=== PATIENT | female | born 1945 | race Caucasian/White ===

== ENCOUNTER 2017-09-21 16:51 | Emergency (ER) | payer OTHER ==
--- NOTE | 2017-09-21 17:09 | ER ---
Nurse's Notes [facility] Name: Jacinda Baird Age: 72 yrs Sex: Female : 1945 Arrival Date: 09/21/2017 Time: 16:52 Bed 13 Private MD: Richard Krause Diagnosis: Cellulitis of right lower limb Presentation: 09/21 16:55 Presenting complaint: Patient states: "a wasp stung me on and my leg is red aa5 and swollen now". Transition of care: patient was not received from another setting of care. Care prior to arrival: None. 16:55 Method Of Arrival: Ambulatory aa5 16:55 Acuity: YESSENIA 5 aa5 17:00 Anaphylaxis evaluation, no signs or symptoms of anaphylaxis were noted. Onset of rb1 symptoms was September 18, 2017. Initial Sepsis Screen: Does the patient meet any 2 criteria? No. Patient's initial sepsis screen is negative. Does the patient have a suspected source of infection? No. Patient's initial sepsis screen is negative. 17:00 Onset: The symptoms/episode began/occurred 3 day(s) ago. rb1 Historical: - Allergies: 16:56 PENICILLINS; aa5 - Home Meds: 17:00 levothyroxine oral [Active]; rb1 - PMHx: 16:56 Hypothyroidism; aa5 16:57 Hyperlipidemia; aa5 - PSHx: 16:57 None; aa5 - Immunization history:: Last tetanus immunization: unknown. - Social history:: Smoking status: Patient/guardian denies using tobacco. Screenin:00 Abuse screen: Denies threats or abuse. Nutritional screening: No deficits noted. rb1 Tuberculosis screening: No symptoms or risk factors identified. Fall Risk None identified. Assessment: 17:00 General: Appears in no apparent distress. comfortable, Behavior is calm, cooperative. rb1 Pain: Complains of pain in medial aspect of right calf Pain currently is 6 out of 10 on a pain scale. Neuro: Level of Consciousness is awake, alert, obeys commands, Oriented to person, place, time, situation. Cardiovascular: Capillary refill < 3 seconds is brisk in bilateral toes. Respiratory: Airway is patent Respiratory effort is even, unlabored, Respiratory pattern is regular, symmetrical, Breath sounds are clear bilaterally. GI: No signs and/or symptoms were reported involving the gastrointestinal system. : No signs and/or symptoms were reported regarding the genitourinary system. EENT: Derm: Bruising that is dark purple, on medial aspect of right calf. Musculoskeletal: Range of motion: intact in all extremities. Vital Signs: 16:57 BP 144 / 85; Pulse 60; Resp 18 S; Temp 97.9(O); Pulse Ox 97% on R/A; Weight 68.04 kg aa5 (R); Height 5 ft. 6 in. (167.64 cm) (R); 16:57 Body Mass Index 24.21 (68.04 kg, 167.64 cm) aa5 ED Course: 16:52 Patient arrived in ED. as 16:52 Richard Krause MD is Private Physician. as 16:56 Triage completed. aa5 16:56 Arm band placed on. aa5 16:59 Pilar Kate FNP-C [facility]. kb 16:59 Geovanny Lackey MD is Attending Physician. kb 17:00 Patient has correct armband on for positive identification. Bed in low position. Call rb1 light in reach. Side rails up X 1. Pulse ox on. NIBP on. 17:01 Jennyfer Ferris, RN is Primary Nurse. rb1 17:08 Richard Krause MD is Referral Physician. kb 17:36 No provider procedures requiring assistance completed. Patient did not have IV access rb1 during this emergency room visit. Administered Medications: 17:25 Drug: Tetanus-Diphtheria Toxoid Adult 0.5 ml {Air Quality Specialist: [employer]. Exp: rb1 12/20/2019. Lot #: [id number]. } Route: IM; Site: right deltoid; 17:30 Follow up: Response: Medication administered at discharge.; pt. has had both rb1 medications before without incident. 17:25 Drug: Clindamycin 300 mg Route: PO; rb1 17:30 Follow up: Response: Medication administered at discharge. rb1 Intake: Outcome: 17:08 Discharge ordered by . kb 17:36 Discharged to home ambulatory, with family. rb1 17:36 Condition: stable 17:36 Discharge instructions given to patient, Instructed on discharge instructions, follow up and referral plans. medication usage, Demonstrated understanding of instructions, follow-up care, medications, Prescriptions given X 1. 17:37 Patient left the ED. rb1 Signatures: Pilar Kate FNP-C FNP-CkZeny Ludwig Audri, RN RN aa5 Jennyfer Ferris, RN RN rb1
--- NOTE | 2017-09-21 17:09 | EDPHYS ---
Physician Documentation [facility] Name: Jacinda Baird Age: 72 yrs Sex: Female : 1945 Arrival Date: 09/21/2017 Time: 16:52 Bed 13 Private MD: Rihcard Krause ED Physician Geovanny Lackey HPI: 09/21 17:07 This 72 yrs old Female presents to ER via Ambulatory with complaints of Bee kb Sting - 3 Days Ago, Leg Swelling. 17:07 The patient presents with cellulitis of the medial aspect of right calf. Description: kb erythematous, swollen. Onset: The symptoms/episode began/occurred 3 day(s) ago. Possible cause(s): insect sting. Associated signs and symptoms: Pertinent positives: erythema, swelling, Pertinent negatives: discharge, drainage, foreign body sensation, fever, headache, nausea, shortness of breath, vomiting. Modifying factors: the symptoms are alleviated by nothing, the symptoms are aggravated by nothing. Severity of symptoms: At their worst the symptoms were mild, moderate, in the emergency department the symptoms are unchanged. The patient has not experienced similar symptoms in the past. The patient has not recently seen a physician. Historical: - Allergies: 16:56 PENICILLINS; aa5 - Home Meds: 17:00 levothyroxine oral [Active]; rb1 - PMHx: 16:56 Hypothyroidism; aa5 16:57 Hyperlipidemia; aa5 - PSHx: 16:57 None; aa5 - Immunization history:: Last tetanus immunization: unknown. - Social history:: Smoking status: Patient/guardian denies using tobacco. ROS: 17:06 Constitutional: Negative for fever, chills, and weight loss, Cardiovascular: Negative kb for chest pain, palpitations, and edema, Respiratory: Negative for shortness of breath, cough, wheezing, and pleuritic chest pain, Abdomen/GI: Negative for abdominal pain, nausea, vomiting, diarrhea, and constipation, MS/Extremity: Negative for injury and deformity, Neuro: Negative for headache, weakness, numbness, tingling, and seizure. 17:06 Skin: Positive for cellulitis, erythema, swelling, of the medial aspect of right calf. Exam: 17:06 Constitutional: This is a well developed, well nourished patient who is awake, alert, kb and in no acute distress. Head/Face: Normocephalic, atraumatic. Chest/axilla: Normal chest wall appearance and motion. Nontender with no deformity. No lesions are appreciated. Cardiovascular: Regular rate and rhythm with a normal S1 and S2. No gallops, murmurs, or rubs. Normal PMI, no JVD. No pulse deficits. Respiratory: Lungs have equal breath sounds bilaterally, clear to auscultation and percussion. No rales, rhonchi or wheezes noted. No increased work of breathing, no retractions or nasal flaring. Abdomen/GI: Soft, non-tender, with normal bowel sounds. No distension or tympany. No guarding or rebound. No evidence of tenderness throughout. MS/ Extremity: Pulses equal, no cyanosis. Neurovascular intact. Full, normal range of motion. Neuro: Awake and alert, GCS 15, oriented to person, place, time, and situation. Cranial nerves II-XII grossly intact. Motor strength 5/5 in all extremities. Sensory grossly intact. Cerebellar exam normal. Normal gait. 17:06 Skin: cellulitis, that is mild, that is moderate, on the medial aspect of right calf. Vital Signs: 16:57 BP 144 / 85; Pulse 60; Resp 18 S; Temp 97.9(O); Pulse Ox 97% on R/A; Weight 68.04 kg aa5 (R); Height 5 ft. 6 in. (167.64 cm) (R); 16:57 Body Mass Index 24.21 (68.04 kg, 167.64 cm) aa5 MDM: 16:59 Patient medically screened. kb 17:05 Data reviewed: vital signs, nurses notes. Data interpreted: Pulse oximetry: on room air kb is 97 %. Interpretation: normal. Counseling: I had a detailed discussion with the patient and/or guardian regarding: the historical points, exam findings, and any diagnostic results supporting the discharge/admit diagnosis, the need for outpatient follow up, a family practitioner, to return to the emergency department if symptoms worsen or persist or if there are any questions or concerns that arise at home. Administered Medications: 17:25 Drug: Tetanus-Diphtheria Toxoid Adult 0.5 ml {Production Hand: [employer]. Exp: rb1 12/20/2019. Lot #: [id number]. } Route: IM; Site: right deltoid; 17:30 Follow up: Response: Medication administered at discharge.; pt. has had both rb1 medications before without incident. 17:25 Drug: Clindamycin 300 mg Route: PO; rb1 17:30 Follow up: Response: Medication administered at discharge. rb1 Disposition: 18:13 Co-signature as Attending Physician, Geovanny Lackey MD. rn Disposition: 09/21/17 17:08 Discharged to Home. Impression: Cellulitis of right lower limb. - Condition is Stable. - Discharge Instructions: Cellulitis, [id number]. - Prescriptions for Clindamycin HCl 300 mg Oral Capsule - take 1 capsule by ORAL route every 8 hours for 7 days; 21 capsule. - Medication Reconciliation Form, Thank You Letter, Antibiotic Education, Prescription Opioid Use form. - Follow up: Emergency Department; When: As needed; Reason: Worsening of condition. Follow up: Richard Krause MD; When: 2 - 3 days; Reason: Recheck today's complaints, Continuance of care, Re-evaluation by your physician. Signatures: Pilar Kate, CONCAVER-C CONCAVER-Ckb Geovanny Lackey MD MD rn Calderon, Audri RN RN aa5 Jennyfer Ferris, RN RN rb1 Corrections: (The following items were deleted from the chart) 17:37 17:08 09/21/2017 17:08 Discharged to Home. Impression: Cellulitis of right lower limb. rb1 Condition is Stable. Forms are Medication Reconciliation Form, Thank You Letter, Antibiotic Education, Prescription Opioid Use. Follow up: Emergency Department; When: As needed; Reason: Worsening of condition. Follow up: Richard Krause; When: 2 - 3 days; Reason: Recheck today's complaints, Continuance of care, Re-evaluation by your physician. kb
[2017-09-21] MEDS ORDERED: TETANUS & DIPHTHERIA TOX,ADULT 0.5 ML VIAL ONE (17:21)
[2017-09-21] MEDS ORDERED: CLINDAMYCIN HCL 150 MG CAP ONE (17:21)
[2017-09-21 17:40] VITALS: BP 144/85; TEMP 97.9; O2SAT 97
== END 2017-09-21 17:37 | disposition home or self-care (01) ==
LOC: ER 16:51
DX: L03.115 Cellulitis of right lower limb (principal); E03.9 Hypothyroidism, unspecified; W57.XXXA Bitten or stung by nonvenomous insect and other nonvenomous arthropods, initial encounter; Y93.9 Activity, unspecified; Y92.9 Unspecified place or not applicable; Z23 Encounter for immunization; Z88.0 Allergy status to penicillin
CPT/HCPCS: 90714; 99283

== ENCOUNTER 2019-10-03 06:24 | Emergency (ER) | payer OTHER ==
[2019-10-03] MEDS ORDERED: FENTANYL CITR 100 MCG/2 ML ONE (06:50)
[2019-10-03 06:59] LABS: Absolute Lymphocytes (CBC) 1.9 K/uL (0.7-4.9); Basophils % 1.2 % (0-1.3); Hematocrit 44.7 % (36.0-45.0); Lymphocytes % 31.7 % (15.3-44.8); MPV 7.7 fL (7.6-11.3)
[2019-10-03 07:11] LABS: Protime INR 0.88
[2019-10-03 07:25] LABS: ALT/SGPT 24 U/L (12-78); AST/SGOT 19 U/L (15-37); Albumin 3.6 g/dL (3.4-5.0); Alkaline Phosphatase 71 U/L (45-117); BUN Blood Urea Nitrogen 14 mg/dL (7-18); Bicarbonate 27 mmol/L (21-32); Bilirubin Direct 0.1 mg/dL (0-0.2); Bilirubin Total 0.6 mg/dL (0.2-1.0); Glucose Level 88 mg/dL (74-106); Magnesium 2.2 mg/dL (1.8-2.4); NT PRO-BNP 476 pg/mL (<450); Potassium 3.8 mmol/L (3.5-5.1); Protein, Total 7.3 g/dL (6.4-8.2); Sodium Level 141 mmol/L (136-145); Troponin (Emerg Dept Use Only) < 0.02 ng/mL (0.0-0.045)
--- NOTE | 2019-10-03 09:05 | RAD REPORT ---
EXAM DESCRIPTION: RAD - Chest Single View - 10/03/2019 6:57 am CLINICAL HISTORY: CHEST PAIN COMPARISON: Portable December 2013 TECHNIQUE: AP portable chest image was obtained 10/03/2019 6:57 am . FINDINGS: No focal mass or consolidation. Interstitial markings are mildly prominent believed be bas tom. This is similar to the remote study. No failure or volume overload. Heart and vasculature are normal. No measurable pleural effusion and no pneumothorax. No acute bony abnormality seen. No acute aortic findings suspected. IMPRESSION: No acute cardiopulmonary process. Mild prominent interstitial pattern is baseline. A very minimal edema or infiltrate could potentially be mass. Follow-up can be obtained as warranted.
--- NOTE | 2019-10-03 10:44 | RAD REPORT ---
EXAM DESCRIPTION: CT - Thorax W/ Con - 10/03/2019 10:01 am CLINICAL HISTORY: eval for mass;Pain COMPARISON: CTANGIO CHEST FOR PE dated 01/16/2014; Chest Single View dated 10/03/2019 TECHNIQUE: Dynamically enhanced 5 mm thick images of the chest were obtained during administration o f 100 mL non-ionic IV contrast. All CT scans are performed using dose optimization technique as appropriate and may include automated exposure control or mA/KV adjustment according to patient size. FINDINGS: Biapical pleural and parenchymal scarring changes match 2014 imaging. Scattered areas of s ubpleural scarring elsewhere in the lung holloway also seen as stable. No worrisome mass or nodule. No pleural thickening or pleural effusion. No pneumothorax. No chest wall mass or abnormal axillary lymp hadenopathy. Ascending aorta is 3.8 centimeter similar to comparison. Lower the descending thoracic aorta is tortu ous. No acute aortic finding. Pulmonary arteries show no suspicious finding. No mediastinal or hilar mass lesion identifiable. Prominent left atrium matches 2014 imaging. Small hiatal hernia has not howard nged. No rib fractures or rib lesions identifiable. IMPRESSION: Pleural and parenchymal scarring changes are present similar to 2014. No acute chest finding.
--- NOTE | 2019-10-03 10:52 | ER ---
Nurse's Notes [facility] Name: Jacinda Baird Age: 74 yrs Sex: Female : 1945 Arrival Date: 10/03/2019 Time: 06:24 Bed 8 Private MD: Diagnosis: Chest pain, unspecified Presentation: 10/02 06:35 Chief complaint: Patient states: I am having this left sided chest pain started today rr5 morning. no nausea or vomiting. 06:35 Coronavirus screen: Proceed with normal triage. Ebola Screen: Patient negative for rr5 fever greater than or equal to 101.5 degrees Fahrenheit, and additional compatible Ebola Virus Disease symptoms Patient denies exposure to infectious person. Patient denies travel to an Ebola-affected area in the 21 days before illness onset. Initial Sepsis Screen: Does the patient meet any 2 criteria? No. Patient's initial sepsis screen is negative. Does the patient have a suspected source of infection? No. Patient's initial sepsis screen is negative. Risk Assessment: Do you want to hurt yourself or someone else? Patient reports no desire to harm self or others. Note as stated by the patient last night I am having back pain took some pills thinking its pleurisy. now my chest is hurting. Onset of symptoms was October 03, 2019. 06:35 Method Of Arrival: Ambulatory rr5 06:35 Acuity: YESSENIA 3 rr5 Triage Assessment: 07:00 General: Appears in no apparent distress. comfortable, Behavior is cooperative, bp appropriate for age, anxious. Pain: Complains of pain in chest. EENT: No deficits noted. Neuro: No deficits noted. Cardiovascular: Chest pain is described as mild. Respiratory: No deficits noted. GI: No signs and/or symptoms were reported involving the gastrointestinal system. : No signs and/or symptoms were reported regarding the genitourinary system. Derm: No deficits noted. Musculoskeletal: No deficits noted. Historical: - Allergies: 06:35 PENICILLINS; rr5 - Home Meds: 06:35 levothyroxine oral [Active]; rr5 - PMHx: 06:35 Hypothyroidism; Hyperlipidemia; rr5 - Immunization history:: Adult Immunizations not up to date, Flu vaccine is not up to date. - Social history:: Smoking status: unknown Patient/guardian denies using alcohol, street drugs. Screenin:40 Abuse screen: Denies threats or abuse. Denies injuries from another. Nutritional rr5 screening: No deficits noted. Tuberculosis screening: No symptoms or risk factors identified. Fall Risk IV access (20 points). Total Cortez Fall Scale indicates No Risk (0-24 pts). Assessment: 06:40 General: Appears in no apparent distress. comfortable, Behavior is calm, cooperative, rr5 appropriate for age. Pain: Complains of pain in left chest Pain does not radiate. Pain currently is 5 out of 10 on a pain scale. Quality of pain is described as aching, Pain began gradually, Is intermittent. Neuro: Level of Consciousness is awake, alert, obeys commands, Oriented to person, place, time, situation, Appropriate for age. Cardiovascular: Reports chest pain, Capillary refill < 3 seconds Patient's skin is warm and dry. Respiratory: Airway is patent Respiratory effort is even, unlabored, Respiratory pattern is regular, symmetrical. GI: No signs and/or symptoms were reported involving the gastrointestinal system. Patient currently denies nausea, vomiting. : No signs and/or symptoms were reported regarding the genitourinary system. EENT: No signs and/or symptoms were reported regarding the EENT system. Derm: Skin is intact, is healthy with good turgor, Skin temperature is warm. Musculoskeletal: Circulation, motion, and sensation intact. Capillary refill < 3 seconds. 06:48 Reassessment: PATIENT TOOK ONE ADULT ASPIRIN WAITER/WAITRESS BAR. rv 06:59 Reassessment: RECD REPORT FROM SISSY LASSITER. 74YO WF P/W CHEST PAIN. ALL CURRENT ORDERS bp COMPLETED, RESULTS PENDING. 07:03 General: Appears in no apparent distress. comfortable, Behavior is calm, cooperative. rb1 Pain: Complains of pain in chest Pain currently is 4 out of 10 on a pain scale. Neuro: Level of Consciousness is awake, alert, obeys commands, Oriented to person, place, time, situation. Cardiovascular: Patient's skin is warm and dry. Respiratory: Airway is patent Respiratory effort is even, unlabored, Respiratory pattern is regular, symmetrical. 08:00 Reassessment: Patient appears in no apparent distress at this time. No changes from rb1 previously documented assessment. 09:00 Reassessment: SECOND CARDIAC ENZYMES DRAWN AND SENT. NO ACUTE S/S AT THIS TIME. bp 10:00 Reassessment: PT RETURNED FROM CT CHEST, RESULTS PENDING. PT RESTING QUIETLY, NO S/S bp ACUTE DISTRESS. 11:08 Reassessment: PT D/C HOME VIA W/C WITH FAMILY, DX WITH NONSPECIFIC CHEST PAIN. bp Vital Signs: 06:35 BP 138 / 88; Pulse 98; Resp 18; Temp 97.8; Pulse Ox 97% ; Weight 68.04 kg; Height 5 ft. rr5 8 in. (172.72 cm); Pain 5/10; 07:00 BP 140 / 84; Pulse 69; Resp 18; Pulse Ox 94% ; bp 08:00 BP 129 / 64; Pulse 50; Resp 12; Pulse Ox 96% on R/A; rb1 09:00 BP 152 / 75; Pulse 57; Resp 17; Pulse Ox 98% ; bp 10:00 BP 158 / 95; Pulse 59; Resp 17; Pulse Ox 99% ; bp 11:08 BP 137 / 87; Pulse 68; Resp 12; Pulse Ox 97% ; bp 06:35 Body Mass Index 22.81 (68.04 kg, 172.72 cm) rr5 ED Course: 06:24 Patient arrived in ED. ds1 06:32 Neena Dorman FNP-C is [facility]. snw 06:32 Thai Brannon MD is Attending Physician. snw 06:36 Britton Kirk, RN is Primary Nurse. rr5 06:39 Triage completed. rr5 06:40 Arm band placed on right wrist. EKG completed in triage. Results shown to MD. rr5 06:42 Patient has correct armband on for positive identification. Placed in gown. Bed in low rr5 position. Call light in reach. ecommerce manager on. Pulse ox on. NIBP on. 06:44 Initial lab(s) drawn, by mn, sent to lab. Inserted saline lock: 18 gauge in right rv forearm, using aseptic technique. Blood collected. 06:57 XRAY Chest (1 view) In Process Unspecified. EDMS 06:59 Primary Nurse role handed off by Britton Kirk, RN rb1 06:59 Jennyfer Ferris, RN is Primary Nurse. rb1 07:03 Patient maintains SpO2 saturation greater than 95% on room air. rb1 10:01 CT Chest W/ Con In Process Unspecified. EDMS 11:08 No provider procedures requiring assistance completed. IV discontinued, intact, bp bleeding controlled, No redness/swelling at site. Pressure dressing applied. 11:10 No provider procedures requiring assistance completed. IV discontinued, intact, iw bleeding controlled, No redness/swelling at site. Pressure dressing applied. Administered Medications: 06:48 Drug: fentaNYL (PF) 25 mcg Route: IVP; Site: right forearm; rv 11:10 Follow up: Response: Pain is decreased bp 11:11 Follow up: Response: No adverse reaction iw Outcome: 10:51 Discharge ordered by . ruddy 11:10 Discharged to home via wheelchair, with family. iw 11:10 Condition: good 11:10 Discharge instructions given to patient, Instructed on discharge instructions, follow up and referral plans. medication usage, Demonstrated understanding of instructions, follow-up care, medications, Prescriptions given X 1. 11:10 Patient left the ED. iw Signatures: Dispatcher [employer] EDMS Neena Dorman, TOPOGRAPHICAL DRAFTER-C TOPOGRAPHICAL DRAFTER-Csnw Sunitha Puente ds1 Vianney Sprague RN RN iw Jennyfer Ferris, RN RN rb1 Peewee Peng RN RN bp Joey Kat, RN RN rv Britton Kirk, RN RN rr5
--- NOTE | 2019-10-03 10:52 | EDPHYS ---
Physician Documentation [facility] Name: Jacinda Baird Age: 74 yrs Sex: Female : 1945 Arrival Date: 10/03/2019 Time: 06:24 Bed 8 Private MD: MARY Physician Thai Brannon HPI: 10/02 06:35 This 74 yrs old Female presents to ER via Unassigned with complaints of Chest snw Pain. 06:35 Onset: The symptoms/episode began/occurred last night, and became persistent. snw Associated signs and symptoms: The patient has no apparent associated signs or symptoms. Modifying factors: The patient symptoms are alleviated by nothing. The patient has not experienced similar symptoms in the past. It is unknown whether or not the patient has recently seen a physician. pt has noted lately that she feels "rubber legged" usually post activity. Historical: - Allergies: 06:35 PENICILLINS; rr5 - Home Meds: 06:35 levothyroxine oral [Active]; rr5 - PMHx: 06:35 Hypothyroidism; Hyperlipidemia; rr5 - Immunization history:: Adult Immunizations not up to date, Flu vaccine is not up to date. - Social history:: Smoking status: unknown Patient/guardian denies using alcohol, street drugs. ROS: 06:34 Constitutional: Negative for fever, chills, and weight loss, Eyes: Negative for injury, snw pain, redness, and discharge, ENT: Negative for injury, pain, and discharge, Neck: Negative for injury, pain, and swelling. 06:34 Respiratory: Negative for shortness of breath, cough, wheezing, and pleuritic chest pain, Abdomen/GI: Negative for abdominal pain, nausea, vomiting, diarrhea, and constipation. 06:34 : Negative for injury, bleeding, discharge, and swelling, MS/Extremity: Negative for injury and deformity, Skin: Negative for injury, rash, and discoloration, Neuro: Negative for headache, weakness, numbness, tingling, and seizure. 06:34 Cardiovascular: Positive for chest pain, of the anterior aspect of left upper chest. 06:34 Back: Positive for pain at rest, of the left scapular area. Exam: 06:34 Constitutional: This is a well developed, well nourished patient who is awake, alert, snw and in no acute distress. Head/Face: Normocephalic, atraumatic. Eyes: Pupils equal round and reactive to light, extra-ocular motions intact. Lids and lashes normal. Conjunctiva and sclera are non-icteric and not injected. Cornea within normal limits. Periorbital areas with no swelling, redness, or edema. ENT: Nares patent. No nasal discharge, no septal abnormalities noted. Tympanic membranes are normal and external auditory canals are clear. Oropharynx with no redness, swelling, or masses, exudates, or evidence of obstruction, uvula midline. Mucous membranes moist. Neck: Trachea midline, no thyromegaly or masses palpated, and no cervical lymphadenopathy. Supple, full range of motion without nuchal rigidity, or vertebral point tenderness. No Meningismus. Cardiovascular: Tachycardic rate and rhythm with a normal S1 and S2. No gallops, murmurs, or rubs. Normal PMI, no JVD. No pulse deficits. Respiratory: Lungs have equal breath sounds bilaterally, clear to auscultation and percussion. No rales, rhonchi or wheezes noted. No increased work of breathing, no retractions or nasal flaring. Abdomen/GI: Soft, non-tender, with normal bowel sounds. No distension or tympany. No guarding or rebound. No evidence of tenderness throughout. Back: No spinal tenderness. No costovertebral tenderness. Full range of motion. Skin: Warm, dry with normal turgor. Normal color with no rashes, no lesions, and no evidence of cellulitis. MS/ Extremity: Pulses equal, no cyanosis. Neurovascular intact. Full, normal range of motion. Neuro: Awake and alert, GCS 15, oriented to person, place, time, and situation. Cranial nerves II-XII grossly intact. Motor strength 5/5 in all extremities. Sensory grossly intact. Cerebellar exam normal. Normal gait. Psych: Awake, alert, with orientation to person, place and time. Behavior, mood, and affect are within normal limits. 06:34 Chest/axilla: Inspection: normal, Palpation: no acute changes, Axilla: are normal. Vital Signs: 06:35 BP 138 / 88; Pulse 98; Resp 18; Temp 97.8; Pulse Ox 97% ; Weight 68.04 kg; Height 5 ft. rr5 8 in. (172.72 cm); Pain 5/10; 07:00 BP 140 / 84; Pulse 69; Resp 18; Pulse Ox 94% ; bp 08:00 BP 129 / 64; Pulse 50; Resp 12; Pulse Ox 96% on R/A; rb1 09:00 BP 152 / 75; Pulse 57; Resp 17; Pulse Ox 98% ; bp 10:00 BP 158 / 95; Pulse 59; Resp 17; Pulse Ox 99% ; bp 11:08 BP 137 / 87; Pulse 68; Resp 12; Pulse Ox 97% ; bp 06:35 Body Mass Index 22.81 (68.04 kg, 172.72 cm) rr5 MDM: 06:33 Patient medically screened. snw 10:52 Data reviewed: vital signs, nurses notes. Data interpreted: Pulse oximetry: on room air snw is 99 %. Interpretation: normal. Counseling: I had a detailed discussion with the patient and/or guardian regarding: the historical points, exam findings, and any diagnostic results supporting the discharge/admit diagnosis, the presence of at least one elevated blood pressure reading (>120/80) during this emergency department visit, lab results, radiology results, the need for outpatient follow up, to return to the emergency department if symptoms worsen or persist or if there are any questions or concerns that arise at home. Response to treatment: the patient's symptoms have mildly improved after treatment, the patient's symptoms have markedly improved after treatment. Special discussion: Based on the patient's history, exam, and Dx evaluation, there is no indication for emergent intervention or inpatient Tx. It is understood by the patient/guardian that if the Sx's persist or worsen they need to return immediately for re-evaluation. Based on the history and exam findings, there is no indication for further emergent testing or inpatient evaluation. I discussed with the patient/guardian the need to see the primary care provider for further evaluation of the symptoms. 10/02 06:33 Order name: Basic Metabolic Panel; Complete Time: 07:28 snw 10/02 06:33 Order name: CBC with Diff; Complete Time: 07:14 snw 10/02 06:33 Order name: LFT's; Complete Time: 07:28 snw 10/02 06:33 Order name: Magnesium; Complete Time: 07:28 snw 10/02 06:33 Order name: NT PRO-BNP; Complete Time: 07:28 snw 10/02 06:33 Order name: PT-INR; Complete Time: 07:14 snw 10/02 06:33 Order name: Troponin (emerg Dept Use Only); Complete Time: 07:28 snw 10/02 06:33 Order name: XRAY Chest (1 view); Complete Time: 09:15 snw 10/02 06:33 Order name: EKG; Complete Time: 06:34 snw 10/02 06:33 Order name: TSH; Complete Time: 07:28 snw 10/02 08:51 Order name: Troponin (emerg Dept Use Only); Complete Time: 10:13 bp 10/02 08:59 Order name: EKG; Complete Time: 09:00 snw 10/02 09:17 Order name: CT Chest W/ Con; Complete Time: 10:50 snw 10/02 06:33 Order name: Cardiac monitoring; Complete Time: 06:36 snw 10/02 06:33 Order name: EKG - Nurse/Tech; Complete Time: 06:36 snw 10/02 06:33 Order name: IV Saline Lock; Complete Time: 06:36 snw 10/02 06:33 Order name: Labs collected and sent; Complete Time: 06:36 snw 10/02 06:33 Order name: O2 Per Protocol; Complete Time: 06:36 snw 10/02 06:33 Order name: O2 Sat Monitoring; Complete Time: 06:36 snw 10/02 07:32 Order name: Repeat Cardiac Enzymes at: 0900; Complete Time: 08:51 snw Administered Medications: 06:48 Drug: fentaNYL (PF) 25 mcg Route: IVP; Site: right forearm; rv 11:10 Follow up: Response: Pain is decreased bp 11:11 Follow up: Response: No adverse reaction iw Disposition: 10/03 08:01 Co-signature as Attending Physician, Thai Brannon MD I agree with the assessment and howard plan of care. Disposition: 10/03/19 10:51 Discharged to Home. Impression: Chest pain, unspecified. - Condition is Stable. - Discharge Instructions: Nonspecific Chest Pain, Chest Wall Pain, Hypertension, Aspirin and Your Heart. - Prescriptions for orphenadrine citrate 100 mg Oral Tablet Sustained Release - take 1 tablet by ORAL route 2 times per day As needed; 20 tablet. - Medication Reconciliation Form, Thank You Letter, Antibiotic Education, Prescription Opioid Use form. - Follow up: Emergency Department; When: As needed; Reason: Worsening of condition. Follow up: Private Physician; When: 1 - 2 days; Reason: Recheck today's complaints, Continuance of care, Re-evaluation by your physician. Signatures: Dispatcher [employer] EDMS Thai Branonn MD MD cha Therrien, Shelly, FOOD SERVICE TRAY ATTENDANT-C FOOD SERVICE TRAY ATTENDANT-Csnw Vianney Sprague, RN RN iw Joey Kat RN RN Britton Kirk RN RN rr5 Peewee Peng RN bp Corrections: (The following items were deleted from the chart) 10/02 11:10 10:51 10/03/2019 10:51 Discharged to Home. Impression: Chest pain, unspecified. iw Condition is Stable. Forms are Medication Reconciliation Form, Thank You Letter, Antibiotic Education, Prescription Opioid Use. Follow up: Emergency Department; When: As needed; Reason: Worsening of condition. Follow up: Private Physician; When: 1 - 2 days; Reason: Recheck today's complaints, Continuance of care, Re-evaluation by your physician. snw
[2019-10-03 11:38] VITALS: TEMP 97.8
[2019-10-03 12:01] VITALS: BP 137/87; O2SAT 97
--- NOTE | 2019-10-04 07:12 | EKG ---
Test Date: 2019-10-03 Test Time: 06:39:10 Disability Insurance Hearing Officer: [employer] MEASUREMENT RESULTS: Intervals: Rate: 76 KS: 152 QRSD: 78 QT: 386 QTc: 434 Wells: P: 82 KS: 152 QRS: -55 T: 76 INTERPRETIVE STATEMENTS: Normal sinus rhythm Left anterior fascicular block Possible Anteroseptal infarct, age undetermined Abnormal ECG Compared to ECG 01/17/2014 13:38:38 Left anterior fascicular block now present Myocardial infarct finding now present Atrial premature complex(es) no longer present Left-axis deviation no longer present Electronically Signed On 10-04-19 07:11:18 CDT by Edwin Banegas
== END 2019-10-03 11:10 | disposition home or self-care (01) ==
LOC: ER 06:24
DX: R07.9 Chest pain, unspecified (principal); E03.9 Hypothyroidism, unspecified; Z88.0 Allergy status to penicillin
CPT/HCPCS: 93005; 85025; 80048; 36415; 83735; 85610; 80076; 84443; 84484 ×2; 83880; 71260; 71045; 96374; 99285; Q9967; J3010

== ENCOUNTER 2021-09-11 11:36 | Emergency (ER) | payer OTHER ==
--- OUTSIDE RECORDS SUMMARY | 2021-09-11 11:39 | XMS REPORT | Continuity of Care Document ---
:1945 Author Organization [facility] t Address [address] [place] [address] [address]. [address] [place] [address] Care Team Providers Name Role Phone Rock Lee MD Primary Care Physician Rock Lee MD Attending Clinician ROCK LEE Attending Clinician Unavailable Cbc, Wellness [facility] Attending Clinician Unavailable Lab, - Db Attending Clinician Unavailable Marco A Ashraf DO Attending Clinician Lab, Fam Pob I Attending Clinician Unavailable Harvey LEON Attending Clinician Trevor Lima Attending Clinician Trevor GARCIA Attending Clinician Unavailable Doctor Unassigned, Name Attending Clinician Unavailable Payers Payer Name Policy Type Policy Number Effective Date Expiration Date S ource Problems Condition Condition Condition Status Onset Resolution Last Treating Co mments Source Name Details Category Date Date Treatment Clinician Date No known No known Disease Unive rs active active ity of problems problems [facility] Allergies, Adverse Reactions, Alerts Allergy Allergy Status Severity Reaction(s) Onset Inactive Treating Comm ents Source Name Type Date Date Clinician NO KNOWN Drug Active Univers ALLERGIE Class ity of S [facility] Social History Social Habit Start Date Stop Date Quantity Comments Source History SDOH University o f Alcohol Comment [place] [facility] History SDOH University o f Alcohol Std [place] [facility] Drinks [facility] History SDOR University o f Alcohol Binge [place] [facility] Exposure to Not sure University of SARS-CoV-2 [place] [facility] (event) [facility] Alcohol intake 2021-01-25 2021-01-25 Lifetime University of 00:00:00 00:00:00 non-drinker [place] [facility] (finding) [facility] Tobacco use and 2020-07-15 2020-07-15 Never used Universit y of exposure 00:00:00 00:00:00 [facility] History SDOH 2020-07-15 2020-07-15 1 University o f Alcohol Frequency 00:00:00 [facility]:00:00 [facility] [place] Sex Assigned At [birth year] Universit y of 00:00:00 00:00:00 [facility] Smoking Status Start Date Stop Date Source Unknown if ever smoked [facility] [place] [facility] Never smoker [facility] Medications Ordered Filled Start Stop Current Ordering Indication Dosage Frequency Signature Comments Components Source Medication Medication Date Date Medication? Clinician (SIG) Name Name levothyroxi Yes [id number] 100ug Take 1 Univers ne 100 mcg 9-28 tablet by ity of tablet 00:00: mouth [place] 00 every Medical morning. Branch levothyroxi Yes [id number] 100ug Take 1 Univers ne 100 mcg 9-24 tablet by ity of tablet 00:00: mouth [place] 00 every Medical morning. Branch levothyroxi 2020- No [id number] 100ug Take 1 Univers ne 100 mcg 9-24 09-28 tablet by ity of tablet 00:00: 00:00 mouth [place] 00 :00 every Medical morning. Branch vitamin B Yes Take by [facility] ers complex (B -08 mouth ity of COMPLEX 15:36: daily. [place] [address] ZINC Yes Take by [facility] ACETATE, 01-25 mouth ity of ORAL, ORAL 15:36: daily. [address] BIOTIN, 2020-0 Yes daily. Univers BULK, MISC 08 ity of 15:36: [address] Branch cholecalcif Yes 1000U Take 1,000 Univers chet, 9-08 Units by ity of vitamin D3, 15:36: mouth [place] (VITAMIN 56 daily. Medical D3) 25 mcg Branch (1,000 unit) tablet omega-3 Yes Take by [facility] s fatty acids -08 mouth ity of (FISH OIL 15:36: daily. [place] CONCENTRATE Medical ORAL) Branch ascorbic Yes 500mg Take 500 Univ ers acid, 9-08 mg by ity of vitamin C, 15:36: mouth [place] (VITAMIN C) 56 daily. Medica l 500 mg Branch tablet BIOTIN, 2020-0 Yes daily. Univers BULK, MISC 9-08 ity of 10:36: [place] [address] Medical Branch cholecalcif 0 Yes 1000U Take 1,000 Univers chet, 9-08 Units by ity of vitamin D3, 10:36: mouth [place] (VITAMIN 56 daily. Medical D3) 25 mcg Branch (1,000 unit) tablet omega-3 0 Yes Take by Univer s fatty acids 9-08 mouth ity of (FISH OIL 10:36: daily. [place] CONCENTRATE 56 Medical ORAL) Branch ascorbic 0 Yes 500mg Take 500 Univ ers acid, 9-08 mg by ity of vitamin C, 10:36: mouth [place] (VITAMIN C) 56 daily. Medica l 500 mg Branch tablet vitamin B Yes Take by Univ ers complex (B 9- mouth ity of COMPLEX 10:36: daily. [place] ORAL) 56 Medical Branch ZINC 0 Yes Take by Univers ACETATE, 9-08 mouth ity of ORAL, ORAL 10:36: daily. [place] [address] Medical Branch BIOTIN, 2020-0 Yes daily. Univers BULK, MISC 9-08 ity of 10:36: [place] [address] Medical Branch cholecalcif 0 Yes 1000U Take 1,000 Univers chet, 9-08 Units by ity of vitamin D3, 10:36: mouth [place] (VITAMIN 56 daily. Medical D3) 25 mcg Branch (1,000 unit) tablet omega-3 0 Yes Take by Univer s fatty acids 9-08 mouth ity of (FISH OIL 10:36: daily. [place] CONCENTRATE 56 Medical ORAL) Branch ascorbic 0 Yes 500mg Take 500 Univ ers acid, 9-08 mg by ity of vitamin C, 10:36: mouth [place] (VITAMIN C) 56 daily. Medica l 500 mg Branch tablet vitamin B 0 Yes Take by Univ ers complex (B 9-08 mouth ity of COMPLEX 10:36: daily. [place] ORAL) 56 Medical Branch ZINC 0 Yes Take by Univers ACETATE, 9-08 mouth ity of ORAL, ORAL 10:36: daily. [place] [address] Medical Branch levothyroxi 2021-0 Yes [id number] 100ug Take 1 Univers ne 100 mcg 9-01 tablet by ity of tablet 00:00: mouth [place] 00 every Medical morning. Branch levothyroxi 0 Yes [id number] 100ug Take 1 Univers ne 100 mcg 9-01 tablet by ity of tablet 00:00: mouth [place] 00 every Medical morning. Branch levothyroxi 0 Yes [id number] 100ug Take 1 Univers ne 100 mcg 9-01 tablet by ity of tablet 00:00: mouth [place] 00 every Medical morning. Branch levothyroxi 2020-0 Yes [id number] 100ug Take 1 Univers ne 100 mcg 9-01 tablet by ity of tablet 00:00: mouth [place] 00 every Medical morning. Branch levothyroxi 0 Yes [id number] 100ug Take 1 Univers ne 100 mcg 9-01 tablet by ity of tablet 00:00: mouth [place] 00 every Medical morning. Branch levothyroxi 2020- No [id number] 100ug Take 1 Univers ne 100 mcg 9-01 -24 tablet by ity of tablet 00:00: 00:00 mouth [place] 00 :00 every Medical morning. [place] LEVOTHYROXI Yes TAKE 1 Univ ers NE 100 mcg 8-09 TABLET BY ity of tablet 00:00: MOUTH [place] 00 EVERY DAY Medical IN THE [place] MORNING LEVOTHYROXI 2020-2020- No TAKE 1 Uni vers NE 100 mcg 12-26 TABLET BY ity of tablet 00:00: 00:00 MOUTH [place] 00 :00 EVERY DAY Medical IN THE [place] MORNING LEVOTHYROXI 2020-2020- No TAKE 1 Uni vers NE 100 mcg 12-26 TABLET BY ity of tablet 00:00: 00:00 MOUTH [place] 00 :00 EVERY DAY Medical IN THE [place] MORNING LEVOTHYROXI Yes 100ug TAKE 1 Uni vers NE 100 mcg 7-14 TABLET BY ity of tablet 00:00: MOUTH [place] 00 EVERY Medical MORNING. Branch LEVOTHYROXI 2020-0 2020- No 100ug TAKE 1 Un kisha NE 100 mcg 7-14 08-09 TABLET BY ity of tablet 00:00: 00:00 MOUTH [place] 00 :00 EVERY Medical MORNING. Branch levothyroxi Yes 100ug Take 1 Uni vers ne 100 mcg 6-15 tablet by ity of tablet 00:00: mouth [place] 00 every Medical morning. Branch levothyroxi 0 Yes 100ug Take 1 Uni vers ne 100 mcg 6-15 tablet by ity of tablet 00:00: mouth [place] 00 every Medical morning. Branch levothyroxi Yes 100ug Take 1 Uni vers ne 100 mcg 6-15 tablet by ity of tablet 00:00: mouth [place] 00 every Medical morning. Branch levothyroxi 0 2020- No 100ug Take 1 Un kisha ne 100 mcg 6-15 07-14 tablet by ity of tablet 00:00: 00:00 mouth [place] 00 :00 every Medical morning. Branch levothyroxi 2019- Yes 100ug Take 100 U nivers ne 100 mcg 2-19 mcg by ity of tablet 00:00: mouth. [place] [facility] levothyroxi 2019- Yes 100ug Take 100 U nivers ne 100 mcg 2-19 mcg by ity of tablet 00:00: mouth. [place] [facility] levothyroxi 2019- Yes 100ug Take 100 U nivers ne 100 mcg 2-19 mcg by ity of tablet 00:00: mouth. [place] [facility] levothyroxi 2019- Yes 100ug Take 100 U nivers ne 100 mcg 2-19 mcg by ity of tablet 00:00: mouth. [place] [facility] levothyroxi 2019-2020- No 100ug Take 100 Univers ne 100 mcg 2-19 06-15 mcg by ity of tablet 00:00: 00:00 mouth. [place] 00 :00 [facility] Branch Immunizations Ordered Filled Immunization Date Status Comments [facility] e Immunization Name Name SARS-COV-2 COVID-19 2020-08-15 Completed Unive rsity of MODERNA VACCINE 00:00:00 [facility] SARS-COV-2 COVID-19 2020-08-15 Completed Unive rsity of MODERNA VACCINE 00:00:00 [facility] SARS-COV-2 COVID-19 2020-08-15 Completed Unive rsity of MODERNA VACCINE 00:00:00 [facility] SARS-COV-2 COVID-19 2020-08-15 Completed Unive rsity of MODERNA VACCINE 00:00:00 [facility] SARS-COV-2 COVID-19 2020-08-15 Completed Unive rsity of MODERNA VACCINE 00:00:00 [facility] SARS-COV-2 COVID-19 2020-08-15 Completed Unive rsity of MODERNA VACCINE 00:00:00 [facility] SARS-COV-2 COVID-19 2020-08-15 Completed Unive rsity of MODERNA VACCINE 00:00:00 [facility] SARS-COV-2 COVID-19 2020-07-18 Completed Unive rsity of MODERNA VACCINE 00:00:00 [facility] SARS-COV-2 COVID-19 2020-07-18 Completed Unive rsity of MODERNA VACCINE 00:00:00 [facility] SARS-COV-2 COVID-19 2020-07-18 Completed Unive rsity of MODERNA VACCINE 00:00:00 [facility] SARS-COV-2 COVID-19 2020-07-18 Completed Unive rsity of MODERNA VACCINE 00:00:00 [facility] SARS-COV-2 COVID-19 2020-07-18 Completed Unive rsity of MODERNA VACCINE 00:00:00 [facility] SARS-COV-2 COVID-19 2020-07-18 Completed Unive rsity of MODERNA VACCINE 00:00:00 [facility] SARS-COV-2 COVID-19 2020-07-18 Completed Unive rsity of MODERNA VACCINE 00:00:00 [facility] TDAP 2019-10-19 Completed University of 00:00:00 [facility] TDAP 2019-10-19 Completed University of 00:00:00 [facility] TDAP 2019-10-19 Completed University of 00:00:00 [facility] TDAP 2019-10-19 Completed University of 00:00:00 [facility] TDAP 2019-10-19 Completed University of 00:00:00 [facility] TDAP 2019-10-19 Completed University of 00:00:00 [facility] TDAP 2019-10-19 Completed University of 00:00:00 [facility] Vital Signs Vital Name Observation Time Observation Value Comments Source Body weight 2021-01-25 15:29:00 68.493 kg Universi of [facility] BMI 2021-01-25 15:29:00 22.96 kg/m2 [facility]i ty [facility] [place] [facility] Systolic blood 2021-01-25 15:29:00 129 mm[Hg] Univer sity of pressure [place] [facility] Diastolic blood 2021-01-25 15:29:00 82 mm[Hg] Unive rsity of pressure [place] [facility] Heart rate 2021-01-25 15:29:00 94 /min Universi ty [facility] [place] [facility] Respiratory rate 2021-01-25 15:29:00 18 /min Univ ersity of [place] [facility] Body height 2021-01-25 15:29:00 172.7 cm Universi ty [facility] [place] [facility] Systolic blood 2021-01-18 13:30:00 148 mm[Hg] Univer sity of pressure [place] [facility] Diastolic blood 2021-01-18 13:30:00 88 mm[Hg] Unive rsity of pressure [place] [facility] Heart rate 2021-01-18 13:29:00 82 /min Universi ty [facility] [place] [facility] Body height 2021-01-18 13:29:00 172.7 cm [facility]i [facility] [place] [facility] Body weight 2021-01-18 13:29:00 68.493 kg [facility] [place] [facility] BMI 2021-01-18 13:29:00 22.96 kg/m2 [facility] [place] [facility] Systolic blood 2020-07-15 15:31:00 141 mm[Hg] Univer sity of pressure [place] [facility] Diastolic blood 2020-07-15 15:31:00 60 mm[Hg] Unive rsity of pressure [place] [facility] Heart rate 2020-07-15 15:31:00 61 /min [facility] [place] [facility] Body temperature 2020-07-15 15:31:00 35.89 Deysi Univ ersity of [place] [facility] Body height 2020-07-15 15:31:00 172.7 cm [facility] [place] [facility] Body weight 2020-07-15 15:31:00 69.4 kg [facility] [place] [facility] BMI 2020-07-15 15:31:00 23.26 kg/m2 [facility] [place] [facility] Procedures This patient has no known procedures. Encounters Start End Encounter Admission Attending Care Care Encounter Source Date/Time Date/Time Type Type Clinicians Facility Department ID 2021-02-14 2021-02-14 Telephone [facility] [id number] Univers 00:00:00 00:00:00 [facility] [id number] it y of [place] [id number] Seth as [facility]a [phone] [place] lizeth [address] Office [facility] 2021-02-10 2021-02-10 Telephone [facility] [id number] Univers 00:00:00 00:00:00 Karthik [facility] [id number] it y of [place] [id number] Seth as [facility] [phone] [address] 2021-02-01 2021-02-01 Outpatient R [facility] [id number] Univers 09:00:00 09:00:00 [id number] [facility] 2021-02-01 2021-02-01 [facility] [id number] Univers 09:00:00 09:00:00 KARTHIK [facility] 2021-01-25 2021-01-25 Nurse Cbc, Medicare Wellness Ang [facility] B [id number] Univers 10:27:12 11:11:13 Visit Karthik Lee [facility] [id number] ity of [place] [id number] Seth as [facility] [phone] [address] Office [facility] 2021-01-25 2021-01-25 Outpatient R [facility] [id number] Univers 10:00:00 10:00:00 [id number] [facility] 2021-01-25 2021-01-25 Outpatient R [facility] [id number] Univers 10:00:00 10:00:00 [facility] 2021-01-19 2021-01-19 [facility] [id number] Univers 00:00:00 00:00:00 Outreach [facility] [id number] i ty of [place] [id number] Seth as [facility]a [phone] Ga lizeth wise 044 [place] [facility] 2021-01-18 2021-01-18 Pet Training Instructor Lab, Ang - Db [facility] 1.2.840.1 [id number] [facility] 09:08:31 09:23:31 Visit RomluisKarthik [facility] [id number] .10 ity of [place] [id number] Seth as [facility]lea [phone] [place] lizeth wise 353 [place] [facility] 2021-01-18 2021-01-18 Office [facility] 1.2.840.114 [id number] [facility] 08:25:09 08:55:09 Visit [place] [address]..[id number] it y of [place] [id number] Seth as [facility]a [phone] Ga lizeth wise 044 [facility] Office [facility] 2021-01-18 2021-01-18 Outpatient [facility] [id number] Univers 08:30:00 08:30:00 KARTHIK [id number] [facility] 2021-01-18 2021-01-[address] [facility] [id number] Univers 08:30:00 08:30:00 [facility] 2020-12-25 2020-12-25 Refill [facility] 1.2.840.114 [id number] Univers 00:00:00 00:00:00 [facility] [id number] it y of [place] [id number] Seth as Professio [phone] Ga joannari nal [address] [place] [address] Office [facility] One 2020-11-30 2020-11-30 Refill [facility] 1.2.840.114 [id number] Univers 00:00:00 00:00:00 [facility] [id number] it y of [place] [id number] Seth as Professio [phone] [place] lizeth nal [address] [place] [address] One 2020-11-04 2020-11-04 [facility] 1.2.840.114 [id number] Univers 00:00:00 00:00:00 [facility] [id number] it y of [place] [id number] Seth as Professio [phone] [address] Office [facility] One 2020-11-01 2020-11-[address] [facility] 1.2.840.114 [id number] Univers 00:00:00 00:00:00 [facility] [id number] it y of [place] [id number] Seth as Professio [phone] [address] One 2020-11-01 2020-11-[address] [facility] [id number] Univers 00:00:00 00:00:00 [facility] [id number] it y of [place] [id number] Seth as Professio [phone] [address] Office [facility] One 2020-07-27 2020-07-27 [facility] [id number] Univers 00:00:00 00:00:00 Outreach Richard [facility] [id number] i ty of [facility] [id number] [place] [phone] [address] 2020-07-20 2020-07-20 Pet Training Instructor Lab, Adc Fam Pob I [facility] 1.2. 840.114 [id number] Univers 07:53:34 08:58:53 Visit Qi Gabriel [facility] [id number] ity of [place] [id number] Seth as Professio [phone] [address] Office [facility] One 2020-07-20 2020-07-20 Outpatient [facility] [id number] Univers 08:00:00 08:00:00 [id number] ity of [facility] 2020-07-20 2020-07-20 Outpatient R [facility] [id number] Univers 08:00:00 08:00:00 [facility] [place] [facility] 2020-07-16 2020-07-16 Outpatient [facility] [id number] Univers 08:40:00 08:40:00 ity [facility] 2020-07-15 2020-07-15 Office Noahlonnie [facility] 1.2.840.114 [id number] Univers 09:21:54 09:51:54 Visit Karthik [facility] [id number] it y of [place] [id number] Seth as Professio [phone] Ga dical nal 044 [place] Office [facility] One 2020-07-15 2020-07-15 Outpatient R ROMÁN [facility] [id number] Univers 09:30:00 09:30:00 KARTHIK [id number] ity [facility] 2020-07-15 2020-07-15 Outpatient R ROMÁN [facility] [id number] Univers 09:30:00 09:30:00 KARTHIK [facility] 2020-05-25 2020-05-25 Laboratory Lab, Adc Fam Pob I [facility] 1.2. 840.114 [id number] Univers 17:46:11 18:06:11 Only Denise Garcia [facility] [id number] ity of [place] [id number] Seth as Professio [phone] Ga dical nal 044 [facility] One 2020-05-25 2020-05-25 Outpatient R KYLER [facility] [id number] Univers 17:40:00 17:40:00 DENISE ity [facility] 2020-05-25 2020-05-25 Letter Doctor ORA 1.2.840.114 [id number] Univers 00:00:00 00:00:00 (Out) Unassigned, AAORN [id number] ity of [place] [facility] [id number] Seth as [phone] [address] Results This patient has no known results.
[2021-09-11] MEDS ORDERED: LIDOCAINE 1% 20 ML MDV ONE (11:53)
--- NOTE | 2021-09-11 12:10 | RAD REPORT ---
EXAM DESCRIPTION: CT - Head Brain Wo Cont - 09/11/2021 11:55 am CLINICAL HISTORY: Head trauma, moderate-severe COMPARISON: <Comparisons> TECHNIQUE: Axial 5 mm thick images of the head were obtained without IV contrast. All CT scans are performed using dose optimization technique as appropriate and may include automated exposure control or mA/KV adjustment according to patient size. FINDINGS: No intracranial hemorrhage, mass, edema or shift of mid-line structures. No acute infarcti on changes seen. Moderate atrophy changes are present with mild cerebral white matter chronic ischemi c changes. Ventricles are in proportion to volume loss. Arterial and physiologic calcifications are p resent. Mastoid air cells and visualized portions of the paranasal sinuses are clear. Large right frontal and right periorbital soft tissue hematoma present. Underlying bone is intact. No globe or orbital content acute injury seen. IMPRESSION: Right frontal and periorbital soft tissue hematoma with no underlying bone or orbit abno rmality. No intracranial hemorrhage or acute intracranial finding.
[2021-09-11] MEDS ORDERED: LIDOCAINE 1% W/EPI 1:100,000 MDV 20 ML VIAL ONE (12:30)
[2021-09-11] MEDS ORDERED: ONDANSETRON 4 MG/2 ML VIAL ONE (12:32)
--- NOTE | 2021-09-11 14:47 | EDPHYS ---
Physician Documentation [facility] Name: Jacinda Baird Age: 76 yrs Sex: Female : 1945 Arrival Date: 09/11/2021 Time: 11:43 Bed 4 Private MD: ED Physician Geovanny Lackey HPI: 09/11 11:53 This 76 yrs old Female presents to ER via Unassigned with complaints of fall, head rn injury. 11:53 The patient or guardian reports injury, a laceration, swelling. The complaints affect rn the right eye. Onset: The symptoms/episode began/occurred just prior to arrival. 11:55 Associated signs and symptoms: Pertinent positives: headache, Pertinent negatives: rn patient denies any alcohol consumption, neck pain, seizure, shortness of breath, vomiting, weakness in extremities, generalized weakness. Severity of symptoms: At their worst the symptoms were mild, in the emergency department the symptoms are unchanged. The patient has not experienced similar symptoms in the past. The patient has not recently seen a physician. Pt reports vacuuming, tripped over something, maybe cord, fell to ground, not sure what she hit, doesn't remember all events. No anticoagulation. Reports only pain to right periorbital region. No neck or back pain. No rib or leg pain. Ambulatory after fall. . Historical: - Allergies: 11:57 PENICILLINS; jg9 - Home Meds: 11:57 levothyroxine oral [Active]; jg9 - PMHx: 11:57 Hyperlipidemia; Hypothyroidism; jg9 - Immunization history:: Client reports receiving the 2nd dose of the Covid vaccine, Pneumococcal vaccine is not up to date, Flu vaccine is not up to date. - Social history:: Smoking status: Patient denies any tobacco usage or history of. - Family history:: not pertinent. - Hospitalizations: : No recent hospitalization is reported. ROS: 11:55 Constitutional: Negative for fever, chills, and weight loss, Eyes: + right periorbital rn swelling and injury ENT: Negative for injury, pain, and discharge, Neck: Negative for injury, pain, and swelling, Cardiovascular: Negative for chest pain, palpitations, and edema, Respiratory: Negative for shortness of breath, cough, wheezing, and pleuritic chest pain, Abdomen/GI: Negative for abdominal pain, nausea, vomiting, diarrhea, and constipation, Back: Negative for injury and pain, MS/Extremity: Negative for injury and deformity, Skin: + laceration and bleeding to right forehead region Neuro: Negative for headache, weakness, numbness, tingling, and seizure. Exam: 11:55 Constitutional: This is a well developed, well nourished patient who is awake, alert, rn and in no acute distress. Head/Face: Normocephalic, + right periorbital swelling and ecchymosis with 4 cm superficial laceration along right brow. No active bleeding. Eyes: Pupils equal round and reactive to light, extra-ocular motions intact. No hyphema Neck: Trachea midline, Supple, full range of motion without nuchal rigidity, or vertebral point tenderness. No Meningismus. Chest/axilla: Normal chest wall appearance and motion. Nontender with no deformity. No lesions are appreciated. Cardiovascular: Regular rate and rhythm. No pulse deficits. Respiratory: No increased work of breathing, no retractions or nasal flaring. Abdomen/GI: Soft, non-tender Back: No spinal tenderness. No costovertebral tenderness. Full range of motion. MS/ Extremity: Pulses equal, no cyanosis. Neurovascular intact. Full, normal range of motion. Equal circumference. Neuro: Awake and alert, GCS 15, oriented to person, place, time, and situation. Cranial nerves II-XII grossly intact. Motor strength 5/5 in all extremities. Sensory grossly intact. Vital Signs: 11:33 BP 166 / 101; Pulse 60; Resp 20 S; Temp 98.0; Pulse Ox 96% on R/A; Weight 52.16 kg (R); jg9 Height 5 ft. 7 in. (170.18 cm); Pain 5/10; 11:45 BP 156 / 90; Pulse 80; Resp 21; Pulse Ox 99% on R/A; jg9 12:30 BP 168 / 96; Pulse 64; Resp 20 S; Pulse Ox 97% on R/A; jg9 15:00 BP 170 / 88; Pulse 68; Resp 17 S; Pulse Ox 95% on R/A; jg9 11:33 Body Mass Index 18.01 (52.16 kg, 170.18 cm) jg9 Doug Coma Score: 11:55 Eye Response: spontaneous(4). Verbal Response: oriented(5). Motor Response: obeys rn commands(6). Total: 15. 14:46 Eye Response: spontaneous(4). Verbal Response: oriented(5). Motor Response: obeys rn commands(6). Total: 15. Laceration: 13:30 Wound Repair of 3cm ( 1.2in ) subcutaneous laceration to right forehead. Linear cp shaped.. Distal neuro/vascular/tendon intact. Anesthesia: Local anesthetic administered with 5 mls of 1% lidocaine w/ Epi. Wound prep: Simple cleansing by me. Skin closed with 6 6-0 Prolene using interrupted sutures and sterile technique. Dressed with Bacitracin. Patient tolerated well. MDM: 11:43 Patient medically screened. rn 12:40 ED course: CT head no acute findings. rn 14:46 Differential diagnosis: Contusion of Hematoma on Laceration of Intracranial bleed- rn Concussion cerebral contusion. Data reviewed: vital signs, nurses notes, radiologic studies, CT scan, and as a result, I will discharge patient. Counseling: I had a detailed discussion with the patient and/or guardian regarding: the historical points, exam findings, and any diagnostic results supporting the discharge/admit diagnosis, radiology results, the need for outpatient follow up, to return to the emergency department if symptoms worsen or persist or if there are any questions or concerns that arise at home. Response to treatment: the patient's symptoms have markedly improved after treatment, and as a result, I will discharge patient. Special discussion: Based on the patient's history, exam and DX evaluation, there is no indication for emergent intervention or inpatient TX. It is understood by the patient/guardian that if the SXs persist or worsen they need to return immediately for re-evaluation. I discussed with the patient/guardian in detail that at this point there is no indication for admission to the hospital. It is understood, however, that if the symptoms persist or worsen the patient needs to return immediately for re-evaluation. ED course: Pt ambulatory, feels much better, tolerating PO, will dc home with return precautions.. 09/11 11:44 Order name: CT Head Brain wo Cont; Complete Time: 12:21 rn 09/11 11:44 Order name: Cardiac monitoring; Complete Time: 11:47 rn 09/11 11:44 Order name: O2 Sat Monitoring; Complete Time: 11:47 rn 09/11 11:45 Order name: Wound Care; Complete Time: 15:06 rn 09/11 11:45 Order name: Ice pack; Complete Time: 11:46 rn 09/11 11:45 Order name: Suture Tray at Bedside; Complete Time: 11:46 rn Administered Medications: 12:32 Drug: Zofran (Ondansetron) 4 mg Route: IVP; Site: left antecubital; jg9 14:45 Follow up: Response: No adverse reaction; Nausea is decreased jg9 12:34 Drug: Lidocaine (1 %) 1 vials {Note: administered by vera clinton to affected area (r jg9 forehead/brow region).} Volume: 20 ml; Route: Infiltration; 12:35 Follow up: Response: No adverse reaction; Pain is decreased jg9 Disposition: 15:37 Co-signature as Attending Physician, Geovanny Lackey MD. rn Disposition Summary: 09/11/21 14:47 Discharge Ordered Location: Home rn Problem: new rn Symptoms: have improved rn Condition: Stable rn Diagnosis - Unspecified injury of head, initial encounter rn - Contusion of scalp, initial encounter rn - Laceration without foreign body of unspecified part of head rn Followup: rn - With: Private Physician - When: 7 - 10 days - Reason: Recheck today's complaints, Staple/Suture removal, Re-evaluation by your physician Discharge Instructions: - Discharge Summary Sheet rn - Facial or Scalp Contusion rn - Head Injury, Adult rn - Hematoma rn - Facial Laceration rn Forms: - Medication Reconciliation Form rn - Thank You Letter rn - Antibiotic learning coordinator - Prescription Opioid Use rn Signatures: Dispatcher [employer] EDGeovanny Sanchez MD MD rn Page, Corey, PA PA cp Gilmore, Jennifer, RN RN jg9
--- NOTE | 2021-09-11 14:47 | ER ---
Nurse's Notes [facility] Name: Jacinda Baird Age: 76 yrs Sex: Female : 1945 Arrival Date: 09/11/2021 Time: 11:43 Bed 4 Private MD: Diagnosis: Unspecified injury of head, initial encounter;Contusion of scalp, initial encounter;Laceration without foreign body of unspecified part of head Presentation: 09/11 11:30 Chief complaint: EMS states: Patient was vacuuming when she tripped over the cord and jg9 fell, patient reports he found her unresponsive, patient does not recall what happened after she fell, patient sustained injury to left eye/forehead, patient is currently a\T\ox3, patient is not on blood thinners and loc is questionable at this time. Coronavirus screen: Vaccine status: Patient reports receiving the 2nd dose of the covid vaccine. dose x2 plus booster. Ebola Screen: Patient negative for fever greater than or equal to 101.5 degrees Fahrenheit, and additional compatible Ebola Virus Disease symptoms Patient denies exposure to infectious person. Patient denies travel to an Ebola-affected area in the 21 days before illness onset. 11:30 Method Of Arrival: EMS: [facility] j9 11:33 Initial Sepsis Screen: Does the patient meet any 2 criteria? No. Patient's initial jg9 sepsis screen is negative. Does the patient have a suspected source of infection? No. Patient's initial sepsis screen is negative. Risk Assessment: Do you want to hurt yourself or someone else? Patient reports no desire to harm self or others. Onset of symptoms was September 11, 2021. 11:33 Acuity: YESSENIA 3 jg9 Triage Assessment: 11:30 General: Appears in no apparent distress. Behavior is calm, cooperative, appropriate jg9 for age. Pain: Complains of pain in right eye and forehead. EENT: ecchymosis to r eye. Neuro: Level of Consciousness is awake, alert, obeys commands, Oriented to person, place, time. Historical: - Allergies: 11:57 PENICILLINS; jg9 - Home Meds: 11:57 levothyroxine oral [Active]; jg9 - PMHx: 11:57 Hyperlipidemia; Hypothyroidism; jg9 - Immunization history:: Client reports receiving the 2nd dose of the Covid vaccine, Pneumococcal vaccine is not up to date, Flu vaccine is not up to date. - Social history:: Smoking status: Patient denies any tobacco usage or history of. - Family history:: not pertinent. - Hospitalizations: : No recent hospitalization is reported. Screenin:59 Abuse screen: Denies threats or abuse. Denies injuries from another. Nutritional jg9 screening: No deficits noted. Tuberculosis screening: No symptoms or risk factors identified. Fall Risk Fall in past 12 months (25 points). Assessment: 12:18 Reassessment: No changes from previously documented assessment. Patient and/or family jg9 updated on plan of care and expected duration. Pain level reassessed. Patient has ice pack to forehead. Vital Signs: 11:33 BP 166 / 101; Pulse 60; Resp 20 S; Temp 98.0; Pulse Ox 96% on R/A; Weight 52.16 kg (R); jg9 Height 5 ft. 7 in. (170.18 cm); Pain 5/10; 11:45 BP 156 / 90; Pulse 80; Resp 21; Pulse Ox 99% on R/A; jg9 12:30 BP 168 / 96; Pulse 64; Resp 20 S; Pulse Ox 97% on R/A; jg9 15:00 BP 170 / 88; Pulse 68; Resp 17 S; Pulse Ox 95% on R/A; jg9 11:33 Body Mass Index 18.01 (52.16 kg, 170.18 cm) jg9 [place] Coma Score: 11:55 Eye Response: spontaneous(4). Verbal Response: oriented(5). Motor Response: obeys rn commands(6). Total: 15. 14:46 Eye Response: spontaneous(4). Verbal Response: oriented(5). Motor Response: obeys rn commands(6). Total: 15. ED Course: 11:43 Patient arrived in ED. rn 11:43 Geovanny Lackey MD is Attending Physician. rn 11:57 CT Head Brain wo Cont In Process Unspecified. EDMS 11:57 Triage completed. jg9 11:59 Arm band placed on right wrist. jg9 11:59 Patient has correct armband on for positive identification. Bed in low position. Call jg9 light in reach. Side rails up X 1. 12:03 Dana Verma, RN is Primary Nurse. jg9 12:23 No apparent distress. Resting quietly. Pt visited by . jg9 12:36 No apparent distress. Resting quietly. Pt visited by daughter. jg9 14:45 Wound care: to laceration located on right eye and forehead was cleaned with soap and jg9 water, dressed with steri strips, Patient tolerated well. 15:06 No provider procedures requiring assistance completed. jg9 15:07 IV discontinued. jg9 Administered Medications: 12:32 Drug: Zofran (Ondansetron) 4 mg Route: IVP; Site: left antecubital; jg9 14:45 Follow up: Response: No adverse reaction; Nausea is decreased jg9 12:34 Drug: Lidocaine (1 %) 1 vials {Note: administered by vera page to affected area (r jg9 forehead/brow region).} Volume: 20 ml; Route: Infiltration; 12:35 Follow up: Response: No adverse reaction; Pain is decreased jg9 Outcome: 14:47 Discharge ordered by . rn 15:06 Discharged to home via wheelchair. jg9 15:06 Condition: stable 15:06 Discharge instructions given to patient, Instructed on discharge instructions, follow up and referral plans. Demonstrated understanding of instructions, follow-up care. 15:07 Patient left the ED. jg9 Signatures: Dispatcher [employer] EDGeovanny Sanchez MD MD rn Gilmore, Jennifer, RN RN jg9
[2021-09-11 17:01] VITALS: BP 170/88; O2SAT 95
== END 2021-09-11 15:07 | disposition home or self-care (01) ==
LOC: ER 11:36
PROC: 0JQ10ZZ Repair Face Subcutaneous Tissue and Fascia, Open Approach (ICD-10-PCS; principal; 2021-09-11)
DX: S01.91XA Laceration without foreign body of unspecified part of head, initial encounter (principal); W01.0XXA Fall on same level from slipping, tripping and stumbling without subsequent striking against object, initial encounter; Y93.E3 Activity, vacuuming; Y92.019 Unspecified place in single-family (private) house as the place of occurrence of the external cause; Z88.0 Allergy status to penicillin; E03.9 Hypothyroidism, unspecified; E78.5 Hyperlipidemia, unspecified
CPT/HCPCS: 70450; 96374; 99284; 12013; J2405

== ENCOUNTER 2021-09-20 08:27 | Emergency (ER) | payer OTHER ==
--- OUTSIDE RECORDS SUMMARY | 2021-09-20 08:29 | XMS REPORT | Continuity of Care Document ---
:[address] [facility] t Address [address] [place] [address] [address] [place] [address] Care Team Providers Name Role Phone Rock Lee MD Primary Care Physician Rock Lee MD Attending Clinician ROCK LEE Attending Clinician Unavailable Cbc, Wellness Ang Fam Attending Clinician Unavailable Lab, - Db Attending Clinician Unavailable Marco A Ashraf DO Attending Clinician Lab, Fam Pob I Attending Clinician Unavailable Harvey RANDHAWAP Attending Clinician Trevor Liam Attending Clinician Trevor GARCIA Attending Clinician Unavailable Doctor Unassigned, Name Attending Clinician Unavailable Payers Payer Name Policy Type Policy Number Effective Date Expiration Date S ource Problems Condition Condition Condition Status Onset Resolution Last Treating Co mments Source Name Details Category Date Date Treatment Clinician Date No known No known Disease Unive rs active active ity of problems problems [facility] Allergies, Adverse Reactions, Alerts Allergy Allergy Status Severity Reaction(s) Onset Inactive Treating Comm ents Source Name Type Date Date Clinician NO KNOWN Drug Active Univers ALLERGIE Class ity of S [facility] Social History Social Habit Start Date Stop Date Quantity Comments Source History SDOH University o f Alcohol Comment [place] [facility] History SDOH University o f Alcohol Std [place] [facility] Drinks [facility] History SDMD University o f Alcohol Binge [place] [facility] Exposure to Not sure University of SARS-CoV-2 [place] [facility] (event) Branch Alcohol intake 2021-01-25 2021-01-25 Lifetime University of 00:00:00 00:00:00 non-drinker [place] [facility] (finding) Branch Tobacco use and 2020-07-15 2020-07-15 Never used Universit y of exposure 00:00:00 00:00:00 [facility] History SDOH 2020-07-15 2020-07-15 1 University o f Alcohol Frequency 00:00:00 00:00:00 [facility] [place] Sex Assigned At [birth year] Universit y of 00:00:00 00:00:00 [facility] Smoking Status Start Date Stop Date Source Unknown if ever smoked Universit y of [place] [facility] Never smoker [facility] Medications Ordered Filled Start Stop Current Ordering Indication Dosage Frequency Signature Comments Components Source Medication Medication Date Date Medication? Clinician (SIG) Name Name levothyroxi Yes [id number] 100ug Take 1 Univers ne 100 mcg 9-28 tablet by ity of tablet 00:00: mouth [place] 00 every Medical morning. Branch levothyroxi Yes [id number] 100ug Take 1 Univers ne 100 mcg 9-24 tablet by ity of tablet 00:00: mouth [place] 00 every Medical morning. Branch levothyroxi 2020- No [id number] 100ug Take 1 Univers ne 100 mcg 9-24 09-28 tablet by ity of tablet 00:00: 00:00 mouth [place] 00 :00 every Medical morning. Branch vitamin B Yes Take by [facility] ers complex (B -08 mouth ity of COMPLEX 15:36: daily. [place] [address] ZINC Yes Take by [facility] ACETATE, 01-25 mouth ity of ORAL, ORAL 15:36: daily. [address] BIOTIN, 2020-0 Yes daily. Univers BULK, MISC 08 ity of 15:36: [address] Branch cholecalcif Yes 1000U Take 1,000 Univers chet, 9-08 Units by ity of vitamin D3, 15:36: mouth [place] (VITAMIN 56 daily. Medical D3) 25 mcg Branch (1,000 unit) tablet omega-3 Yes Take by [facility] s fatty acids -08 mouth ity of (FISH OIL 15:36: daily. [place] CONCENTRATE Medical ORAL) Branch ascorbic Yes 500mg Take 500 Univ ers acid, 9-08 mg by ity of vitamin C, 15:36: mouth [place] (VITAMIN C) 56 daily. Medica l 500 mg Branch tablet BIOTIN, 2020-0 Yes daily. Univers BULK, MISC 9-08 ity of 10:36: [place] [address] Medical Branch cholecalcif 0 Yes 1000U Take [...] mouth ity of ORAL, ORAL 10:36: daily. [place] [address] Medical Branch BIOTIN, 2020-0 Yes daily. Univers BULK, MISC 9-08 ity of 10:36: [place] [address] Medical Branch cholecalcif 0 Yes 1000U Take [...] mouth ity of ORAL, ORAL 10:36: daily. [place] [address] Medical Branch levothyroxi 2021-0 Yes [id number] 100ug Take 1 Univers ne 100 mcg 9-01 tablet by ity of tablet 00:00: mouth [place] 00 every Medical morning. Branch levothyroxi 0 Yes [id number] 100ug Take 1 Univers ne 100 mcg 9-01 tablet by ity of tablet 00:00: mouth [place] 00 every Medical morning. Branch levothyroxi 0 Yes [id number] 100ug Take 1 Univers ne 100 mcg 9-01 tablet by ity of tablet 00:00: mouth [place] 00 every Medical morning. Branch levothyroxi 2020-0 Yes [id number] 100ug Take 1 Univers ne 100 mcg 9-01 tablet by ity of tablet 00:00: mouth [place] 00 every Medical morning. Branch levothyroxi 0 Yes [id number] 100ug Take 1 Univers ne 100 mcg 9-01 tablet by ity of tablet 00:00: mouth [place] 00 every Medical morning. Branch levothyroxi 2020- No [id number] 100ug Take 1 Univers ne 100 mcg 9-01 -24 tablet by ity of tablet 00:00: 00:00 mouth [place] 00 :00 every Medical morning. [place] LEVOTHYROXI Yes TAKE 1 Univ ers NE 100 mcg 8-09 TABLET BY ity of tablet 00:00: MOUTH [place] 00 EVERY DAY Medical IN THE [place] MORNING LEVOTHYROXI 2020-2020- No TAKE 1 Uni vers NE 100 mcg 12-26 TABLET BY ity of tablet 00:00: 00:00 MOUTH [place] 00 :00 EVERY DAY Medical IN THE [place] MORNING LEVOTHYROXI 2020-2020- No TAKE 1 Uni vers NE 100 mcg 12-26 TABLET BY ity of tablet 00:00: 00:00 MOUTH [place] 00 :00 EVERY DAY Medical IN THE [place] MORNING LEVOTHYROXI Yes 100ug TAKE 1 Uni [...] tablet by ity of tablet 00:00: mouth [place] 00 every Medical morning. Branch levothyroxi 0 2020- No 100ug Take 1 Un kisha ne 100 mcg 6-15 07-14 tablet by ity of tablet 00:00: 00:00 mouth [place] 00 :00 every Medical morning. Branch levothyroxi 2019- Yes 100ug Take 100 U nivers ne 100 mcg 2-19 mcg by ity of tablet 00:00: mouth. [place] [facility] levothyroxi 2019- Yes 100ug Take 100 U nivers ne 100 mcg 2-19 mcg by ity of tablet 00:00: mouth. [place] [facility] levothyroxi 2019- Yes 100ug Take 100 U nivers ne 100 mcg 2-19 mcg by ity of tablet 00:00: mouth. [place] [facility] levothyroxi 2019- Yes 100ug Take 100 U nivers ne 100 mcg 2-19 mcg by ity of tablet 00:00: mouth. [place] [facility] levothyroxi 2019-2020- No 100ug Take 100 Univers ne 100 mcg 2-19 06-15 mcg by ity of tablet 00:00: 00:00 mouth. [place] 00 :00 [facility] Branch Immunizations Ordered Filled Immunization Date Status Comments [facility] e Immunization Name Name SARS-COV-2 COVID-19 2020-08-15 Completed Unive rsity of MODERNA VACCINE 00:00:00 [facility] SARS-COV-2 COVID-19 2020-08-15 Completed Unive rsity of MODERNA VACCINE 00:00:00 [facility] SARS-COV-2 COVID-19 2020-08-15 Completed Unive rsity of MODERNA VACCINE 00:00:00 [facility] SARS-COV-2 COVID-19 2020-08-15 Completed Unive rsity of MODERNA VACCINE 00:00:00 [facility] SARS-COV-2 COVID-19 2020-08-15 Completed Unive rsity of MODERNA VACCINE 00:00:00 [facility] SARS-COV-2 COVID-19 2020-08-15 Completed Unive rsity of MODERNA VACCINE 00:00:00 [facility] SARS-COV-2 COVID-19 2020-08-15 Completed Unive rsity of MODERNA VACCINE 00:00:00 [facility] SARS-COV-2 COVID-19 2020-07-18 Completed Unive rsity of MODERNA VACCINE 00:00:00 [facility] SARS-COV-2 COVID-19 2020-07-18 Completed Unive rsity of MODERNA VACCINE 00:00:00 [facility] SARS-COV-2 COVID-19 2020-07-18 Completed Unive rsity of MODERNA VACCINE 00:00:00 [facility] SARS-COV-2 COVID-19 2020-07-18 Completed Unive rsity of MODERNA VACCINE 00:00:00 [facility] SARS-COV-2 COVID-19 2020-07-18 Completed Unive rsity of MODERNA VACCINE 00:00:00 [facility] SARS-COV-2 COVID-19 2020-07-18 Completed Unive rsity of MODERNA VACCINE 00:00:00 [facility] SARS-COV-2 COVID-19 2020-07-18 Completed Unive rsity of MODERNA VACCINE 00:00:00 [facility] TDAP 2019-10-19 Completed University of 00:00:00 [facility] TDAP 2019-10-19 Completed University of 00:00:00 [facility] TDAP 2019-10-19 Completed University of 00:00:00 [facility] TDAP 2019-10-19 Completed University of 00:00:00 [facility] TDAP 2019-10-19 Completed University of 00:00:00 [facility] TDAP 2019-10-19 Completed University of 00:00:00 [facility] TDAP 2019-10-19 Completed University of 00:00:00 [facility] Vital Signs Vital Name Observation Time Observation Value Comments Source Body weight 2021-01-25 15:29:00 68.493 kg Universi of [facility] BMI 2021-01-25 15:29:00 22.96 kg/m2 Universi ty of [place] [facility] Systolic blood 2021-01-25 15:29:00 129 mm[Hg] Univer sity of pressure [place] [facility] Diastolic blood 2021-01-25 15:29:00 82 mm[Hg] Unive rsity of pressure [place] [facility] Heart rate 2021-01-25 15:29:00 94 /min Universi ty of [place] [facility] Respiratory rate 2021-01-25 15:29:00 18 /min Univ ersity of [place] [facility] Body height 2021-01-25 15:29:00 172.7 cm Universi ty of [place] [facility] Systolic blood 2021-01-18 13:30:00 148 mm[Hg] Univer sity of pressure [place] [facility] Diastolic blood 2021-01-18 13:30:00 88 mm[Hg] Unive rsity of pressure [place] [facility] Heart rate 2021-01-18 13:29:00 82 /min Universi ty of [place] [facility] Body height 2021-01-18 13:29:00 172.7 cm Universi ty of [place] [facility] Body weight 2021-01-18 13:29:00 68.493 kg Universi ty of [place] [facility] BMI 2021-01-18 13:29:00 22.96 kg/m2 Universi ty of [place] [facility] Systolic blood 2020-07-15 15:31:00 141 mm[Hg] Univer sity of pressure [place] [facility] Diastolic blood 2020-07-15 15:31:00 60 mm[Hg] Unive rsity of pressure [place] [facility] Heart rate 2020-07-15 15:31:00 61 /min Universi ty of [place] [facility] Body temperature 2020-07-15 15:31:00 35.89 Deysi Univ ersity of [place] [facility] Body height 2020-07-15 15:31:00 172.7 [...] Clinicians Facility Department ID 2021-02-14 2021-02-14 Telephone [facility] [id number] Univers 00:00:00 00:00:00 [facility] [id number] it y of [place] [id number] Seth as Duke?Blea [phone] Wi lizeth [address] Office [facility] 2021-02-10 2021-02-10 Telephone [facility] [id number] Univers 00:00:00 00:00:00 Karthik [facility] [id number] it y of [place] [id number] Seth as [facility]?Blea [phone] [address] 2021-02-01 2021-02-01 Outpatient R [facility] [id number] Univers 09:00:00 09:00:00 [id number] [facility] 2021-02-01 2021-02-01 [facility] [id number] Univers 09:00:00 09:00:00 KARTHIK [facility] 2021-01-25 2021-01-25 Nurse Cbc, Medicare Wellness Ang [facility] B [id number] Univers 10:27:12 11:11:13 Visit Karthik Lee [facility] [id number] ity of [place] [id number] Seth as [facility]?Blea [phone] [address] Office [facility] 2021-01-25 2021-01-25 Outpatient R [facility] [id number] Univers 10:00:00 10:00:00 [id number] [facility] 2021-01-25 2021-01-25 Outpatient R [facility] [id number] Univers 10:00:00 10:00:00 [facility] 2021-01-19 2021-01-19 Pre [facility] [id number] Univers 00:00:00 00:00:00 Outreach [facility] [id number] i ty of [place] [id number] Seth as [facility]?Blea [phone] Wi lizeth wise 044 [place] [facility] 2021-01-18 2021-01-18 [facility], Ang - Db [facility] [id number] [facility] 09:08:31 09:23:[address] [facility] [id number] ity of [place] [id number] Seth as Duke?Blea [phone] Wi lizeth wise 353 [place] [facility] 2021-01-18 2021-01-18 Office [facility] [id number] [facility] 08:25:09 08:55:09 Visit [place] [id number] it y of [place] [id number] Seth as Duke?Blea [phone] Wi lizeth wise 044 [facility] Office [facility] 2021-01-18 2021-01-18 [facility] [id number] Univers 08:30:00 08:30:00 KARTHIK [id number] [facility] 2021-01-18 2021-01-18 Outpatient [facility] [id number] Univers 08:30:00 08:30:00 [facility] 2020-12-25 2020-12-25 Refill [facility] [id number] Univers 00:00:00 00:00:00 [facility] [id number] it y of [place] [id number] Seth as Professio [phone] Wi joannaut nal [address] [place] [address] Office [facility] One 2020-11-30 2020-11-30 Refill [facility] [id number] Univers 00:00:00 00:00:00 [facility] [id number] it y of [place] [id number] Seth as Professio [phone] Wi lizeth nal [address] [place] [address] One 2020-11-04 2020-11-04 [facility] [id number] Univers 00:00:00 00:00:00 [facility] [id number] it y of [place] [id number] Seth as Professio [phone] [address] Office [facility] One 2020-11-01 2020-11-01 [facility] [id number] Univers 00:00:00 00:00:00 [facility] [id number] it y of [place] [id number] Seth as Professio [phone] [address] One 2020-11-01 2020-11-01 [facility] [id number] Univers 00:00:00 00:00:00 [facility] [id number] it y of [place] [id number] Seth as Professio [phone] [address] Office [facility] One 2020-07-27 2020-07-27 [facility] [id number] Univers 00:00:00 00:00:00 Outreach Richard PRIMARY [id number] i ty of [facility] [id number] [place] [phone] [address] 2020-07-20 2020-07-20 [facility], Adc Fam Pob I [facility] 1.2. 840.114 [id number] Univers 07:53:34 08:58:53 Visit Qi Gabriel [facility] [id number] ity of [place] [id number] Seth as Professio [phone] [address] Office [facility] One 2020-07-20 2020-07-20 Outpatient [facility] [id number] Univers 08:00:00 08:00:00 [id number] ity of [facility] 2020-07-20 2020-07-20 Outpatient R [facility] [id number] Univers 08:00:00 08:00:00 ity of [place] [facility] 2020-07-16 2020-07-16 Outpatient [facility] [id number] Univers 08:40:00 08:40:00 ity [facility] 2020-07-15 2020-07-15 Office Noahlonnie [facility] [id number] Univers 09:21:54 09:51:54 Visit Karthik [facility] [id number] it y of [place] [id number] Seth as Professio [phone] Wi dical nal 044 [place] Office [facility] One 2020-07-15 2020-07-15 Outpatient R ROMÁN [facility] [id number] Univers 09:30:00 09:30:00 KARTHIK [id number] ity [facility] [place] [facility] 2020-07-15 2020-07-15 Outpatient R ROMÁN [facility] [id number] Univers 09:30:00 09:30:00 KARTHIK [facility] 2020-05-25 2020-05-25 Laboratory Lab, Adc Fam Pob I [facility] 1.2. [id number] Univers 17:46:11 18:06:11 Only Denise Garcia [facility] [id number] ity of [place] [id number] Seth as Professio [phone] Wi dical nal 044 [facility] One 2020-05-25 2020-05-25 Outpatient R KYLER [facility] [id number] Univers 17:40:00 17:40:00 DENISE ity [facility] [place] [facility] 2020-05-25 2020-05-25 Letter Doctor ORA [id number] Univers 00:00:00 00:00:00 (Out) Unassigned, AARON [id number] ity of [place] [facility] [id number] Seth as [phone] [address] Results This patient has no known results.
--- NOTE | 2021-09-20 08:46 | EDPHYS ---
Physician Documentation [facility] Name: Jacinda Baird Age: 76 yrs Sex: Female : 1945 Arrival Date: 09/20/2021 Time: 08:29 Bed Waiting Private MD: ED Physician Geovanny Lackey HPI: 09/20 08:38 This 76 yrs old Female presents to ER via Ambulatory with complaints of Suture Removal. [facility] 08:38 The patient has sutures on the face. Previous treatment: The patient was initially jh7 treated 9 day(s) ago. Sutures/cornell progress: The patient has no c/o's. The wound is well-healing with no redness, swelling, discharge, or dehiscence reported. Historical: - Allergies: 08:36 PENICILLINS; jl7 - Home Meds: 08:36 levothyroxine oral [Active]; jl7 - PMHx: 08:36 Hyperlipidemia; Hypothyroidism; jl7 - Immunization history:: Adult Immunizations up to date. - Social history:: Smoking status: Patient denies any tobacco usage or history of. ROS: 08:38 Constitutional: Negative for fever, chills, and weight loss, Cardiovascular: Negative [facility] for chest pain, palpitations, and edema, Respiratory: Negative for shortness of breath, cough, wheezing, and pleuritic chest pain, Neuro: Negative for headache, weakness, numbness, tingling, and seizure. 08:38 Skin: Positive for 6 intact sutures over R eyebrow. Exam: 08:38 Constitutional: This is a well developed, well nourished patient who is awake, alert, jh7 and in no acute distress. Cardiovascular: Regular rate and rhythm with a normal S1 and S2. No gallops, murmurs, or rubs. Normal PMI, no JVD. No pulse deficits. Respiratory: Lungs have equal breath sounds bilaterally, clear to auscultation and percussion. No rales, rhonchi or wheezes noted. No increased work of breathing, no retractions or nasal flaring. Neuro: Awake and alert, GCS 15, oriented to person, place, time, and situation. Cranial nerves II-XII grossly intact. Motor strength 5/5 in all extremities. Sensory grossly intact. Cerebellar exam normal. Normal gait. 08:38 Skin: injury, 6 intact sutures present over R eyebrow. There is no swelling, redness, dehiscence, drainage, or any other symptoms. The wound appears to be healing appropriately.. Vital Signs: 08:36 BP 142 / 81; Pulse 58; Resp 17; Temp 98.2; Pulse Ox 97% ; Weight 66.22 kg; Height 5 ft. jl7 7 in. (170.18 cm); Pain 0/10; 08:36 Body Mass Index 22.87 (66.22 kg, 170.18 cm) jl7 Procedures: 08:38 Suture/Staple removal: Removed 6 sutures, from face, site appears well healed, Patient jh7 tolerated well. MDM: 08:38 Data reviewed: vital signs, nurses notes. Data interpreted: Pulse oximetry: is 97 %. [facility] Interpretation: normal. Counseling: I had a detailed discussion with the patient and/or guardian regarding: the historical points, exam findings, and any diagnostic results supporting the discharge/admit diagnosis. Response to treatment: the patient's condition has returned to base line. ED course: 6 intact sutures were removed from the right eyebrow. There are no signs of infection noted. The patient will follow up with her PCP at the next scheduled visit.. 08:45 Patient medically screened. [facility] Administered Medications: No medications were administered Disposition: 14:52 Co-signature as Attending Physician, Geovanny Lackey MD. rn Disposition Summary: 09/20/21 08:45 Discharge Ordered Location: Home [facility] Problem: new [facility] Symptoms: are resolved 7 Condition: Stable [facility] Diagnosis - Encounter for removal of sutures [facility] Followup: [facility] - With: Private Physician - When: As needed - Reason: Continuance of care Forms: - Medication Reconciliation Form [facility] - Thank You Letter 7 - Antibiotic Education 7 - Prescription Opioid Use [facility] Signatures: Geovanny Lackey MD MD rn Leal, Jahala, RN RN jl7 Hadash, Jennifer, FNP FNP [facility]
--- NOTE | 2021-09-20 08:46 | ER ---
Nurse's Notes [facility] Name: Jacinda Baird Age: 76 yrs Sex: Female : 1945 Arrival Date: 09/20/2021 Time: 08:29 Bed Waiting Private MD: Diagnosis: Encounter for removal of sutures Presentation: 09/20 08:35 Chief complaint: Patient states: Suture removal from right eyebrow. Coronavirus screen: jl7 At this time, the client does not indicate any symptoms associated with coronavirus-19. Ebola Screen: No symptoms or risks identified at this time. Risk Assessment: Do you want to hurt yourself or someone else? Patient reports no desire to harm self or others. Onset of symptoms was September 20, 2021. 08:35 Method Of Arrival: Ambulatory jl7 08:35 Acuity: YESSENIA 4 jl7 08:41 Initial Sepsis Screen: Does the patient meet any 2 criteria? No. Patient's initial jl7 sepsis screen is negative. Does the patient have a suspected source of infection? No. Patient's initial sepsis screen is negative. Triage Assessment: 08:36 General: Appears in no apparent distress. uncomfortable, Behavior is calm, cooperative, jl7 appropriate for age. Pain: Denies pain. Neuro: You Agitation-Sedation Scale (RASS): 0 - Alert and Calm. Cardiovascular: Patient's skin is warm and dry. Derm: Skin is pink, warm \T\ dry. Bruising that is dark purple, yellow, on right eye, right cheek and right jaw. Historical: - Allergies: 08:36 PENICILLINS; jl7 - Home Meds: 08:36 levothyroxine oral [Active]; jl7 - PMHx: 08:36 Hyperlipidemia; Hypothyroidism; jl7 - Immunization history:: Adult Immunizations up to date. - Social history:: Smoking status: Patient denies any tobacco usage or history of. Screenin:40 Abuse screen: Denies threats or abuse. Denies injuries from another. Nutritional jl7 screening: No deficits noted. Tuberculosis screening: No symptoms or risk factors identified. Fall Risk Fall in past 12 months (25 points). Total Cortez Fall Scale indicates No Risk (0-24 pts). Vital Signs: 08:36 BP 142 / 81; Pulse 58; Resp 17; Temp 98.2; Pulse Ox 97% ; Weight 66.22 kg; Height 5 ft. jl7 7 in. (170.18 cm); Pain 0/10; 08:36 Body Mass Index 22.87 (66.22 kg, 170.18 cm) 7 ED Course: 08:29 Patient arrived in ED. as 08:31 [facility] 7 08:31 Geovanny Lackey MD is Attending Physician. 7 08:36 Triage completed. jl7 08:40 Arm band placed on right wrist. jl7 08:40 Patient has correct armband on for positive identification. jl7 08:40 Suture removal. Patient did not have IV access during this emergency room visit. 7 08:53 Levon Foley, RN is Primary Nurse. jl7 Administered Medications: No medications were administered Outcome: 08:40 Discharged to home ambulatory. jl7 08:40 Condition: stable 08:40 Discharge instructions given to patient, Instructed on discharge instructions, follow up and referral plans. Demonstrated understanding of instructions, follow-up care. 08:45 Discharge ordered by . [facility] 08:53 Patient left the ED. 7 Signatures: Zeny Javier Jahala, RN RN [facility] Dana Olivera FNP FNP [facility]
[2021-09-20 08:59] VITALS: BP 142/81; TEMP 98.2; O2SAT 97
== END 2021-09-20 08:53 | disposition home or self-care (01) ==
LOC: ER 08:27
DX: Z48.02 Encounter for removal of sutures (principal)
CPT/HCPCS: 99281